=== PATIENT | female | born 1970 | race Caucasian/White ===

== ENCOUNTER 2016-05-07 14:10 | Emergency (ER) | payer OTHER ==
[~2016-05-07] VITALS: Ht 175.3 cm; Wt 83.0 kg
[~2016-05-07 14:10] MED LIST: CYCL-319 PO; HYDR-3498 PO; IBUP-1542 PO
[2016-05-07 14:53] VITALS: Ht 175.3 cm; Wt 83.0 kg
[2016-05-07] MEDS ORDERED: ACETAMINOPHEN 500 MG TAB PO STA (16:11)
[2016-05-07] MEDS ORDERED: IBUPROFEN 800 MG TAB PO ONE (16:30)
--- NOTE | 2016-05-07 16:39 | RADRPT ---
PROCEDURE: XR Right Forearm. CLINICAL INDICATION: Trauma. Right forearm pain. TECHNIQUE: AP and lateral views of the right forearm were obtained. COMPARISON: No prior studies are available for comparison. FINDINGS: There is no fracture or dislocation. The soft tissues are normal. Articular surfaces are intact. There is no lytic or blastic lesion. There is no radiopaque foreign body. IMPRESSION: 1. Unremarkable images of the right forearm. RPTAT: QQ .Bud De Oliveira MD, MD Date Time Electronically viewed and signed by .Bud De Oliveiar MD, on 05/07/2016 16:39 .R/
[2016-05-07] MEDS ORDERED: ACET325T33 PO (17:07)
[2016-05-07] MEDS ORDERED: NAPR-260 PO (17:07)
--- NOTE | 2016-05-07 17:31 | ERD ---
ER Documentation Chief Complaint Date/Time DATE: 05/07/16 TIME: 17:28 Chief Complaint R ARM PAIN HPI 46-year-old female who around 2 PM today bumped her right forearm on a wooden bar. Complains of pain in the right forearm. This occurred at work. No other complaints. ROS All systems reviewed and are negative except as per history of present illness. Medications Home Meds Active Scripts Acetaminophen* (Tylenol*) 325 Mg Tablet, 2 TAB PO Q6 Y for PAIN AND OR ELEVATED TEMP, #20 TAB Prov:KARSTEN DILLON DO 05/07/16 Naproxen* (Naprosyn*) 500 Mg Tablet, 500 MG PO BID Y for PAIN AND/OR INFLAMMATION, #15 TAB Prov:KARSTEN DILLON DO 05/07/16 Cyclobenzaprine Hcl* (Cyclobenzaprine Hcl*) 10 Mg Tablet, 10 MG PO TID, #20 TAB Prov:RAZA ARAMBULA MD 04/02/15 Hydrocodone Bit-Acetaminophen* ([place]*) 5-325 Mg Tab, 1 TAB PO Q6 Y for PAIN, # 15 TAB Prov:RAZA ARAMBULA MD 04/02/15 Ibuprofen* (Motrin*) 600 Mg Tab, 600 MG PO Q6, #20 TAB Prov:RAZA ARAMBULA MD 04/02/15 Allergies Allergies: Coded Allergies: No Known Allergy (Unverified , 04/02/15) PMhx/Soc Medical and Surgical Hx: pt denies Medical Hx, pt denies Surgical Hx Hx Alcohol Use: No Hx Substance Use: No Hx Tobacco Use: No Physical Exam Vitals Vital Signs Date Time Temp Pulse Resp B/P Pulse Ox O2 Delivery O2 Flow Rate FiO2 05/07/16 14:53 98.0 67 18 111/68 99 Physical Exam Const: NAD WDWN alert oriented 3 Head: Atraumatic Eyes: Normal Conjunctiva ENT: Normal External Ears, Nose and Mouth. Neck: Full range of motion..~ No meningismus. Resp: Clear to auscultation bilaterally Cardio: Regular rate and rhythm, no murmurs Abd: Soft, non tender, non distended. Normal bowel sounds Skin: No petechiae or rashes Back: No midline or flank tenderness Ext: No cyanosis,. Right distal forearm has localized area of moderate to severe tenderness to palpation mild pain with pronation supination minimal edema no erythema and is neurovascularly intact negative squeeze test Neur: Awake and alert Psych: Normal Mood and Affect Results 24 hrs Current Medications Medications (Trade) Dose Ordered Sig/Carlitos Route PRN Reason Start Time Stop Time Status Last Admin Dose Admin Ibuprofen (Motrin) 800 mg ONCE ONCE PO 05/07/16 16:30 05/07/16 16:31 DC 05/07/16 16:43 Acetaminophen (Tylenol Tab) 1,000 mg ONCE STAT PO 05/07/16 16:11 05/07/16 16:12 DC 05/07/16 16:43 [place] [id number] Radiology Main Line: [phone] DIAGNOSTIC IMAGING REPORT Patient: PETER RICCI : 1970 Age: 46 Sex: F MR #: [id number] DOS: 05/07/16 0000 Ordering MD: KARSTEN DILLON DO Location: [facility] Room/Bed: PROCEDURE: XR Right Forearm. CLINICAL INDICATION: Trauma. Right forearm pain. TECHNIQUE: AP and lateral views of the right forearm were obtained. COMPARISON: No prior studies are available for comparison. FINDINGS: There is no fracture or dislocation. The soft tissues are normal. Articular surfaces are intact. There is no lytic or blastic lesion. There is no radiopaque foreign body. IMPRESSION: 1. Unremarkable images of the right forearm. RPTAT: QQ .Raza De Oliveira MD, MD Date Time Electronically viewed and signed by .Raza De Oliveira MD, on 05/07/2016 16:39 .R/ CC: KARSTEN DILLON DO Procedures/MDM X-ray does not show dislocation or fracture. Likely this is a soft tissue injury and/or bone bruise. Motrin Tylenol here and will give her pain medication for home. Chris wrap was applied to the right forearm for comfort and support. Splint Assessment: Neurovascularly intact post splint placement with good fit. I doubt fracture or dislocation or abscess or cellulitis or compartment syndrome. Vital signs are stable and she is stable for discharge and outpatient follow-up. ED precautions discussed Departure Diagnosis: Primary Impression: Right forearm injury Encounter type: initial encounter Qualified Code: S59.911A - Right forearm injury, initial encounter Condition: Stable Patient Instructions: Contusion, Upper Extremity KARSTEN DILLON DO May 07, 2016 17:31
[2016-05-07 17:39] VITALS: BP 115/62; PULSE 65; RESP 16; TEMP 98
== END 2016-05-07 17:40 | disposition home or self-care (01) ==
LOC: FTE 14:10
DX: S59.911A Unspecified injury of right forearm, initial encounter (principal); W22.8XXA Striking against or struck by other objects, initial encounter; Y92.89 Other specified places as the place of occurrence of the external cause
CPT/HCPCS: 73090; Z7502; Z7610

== ENCOUNTER 2016-10-26 19:53 | Emergency (ER) | payer OTHER ==
[~2016-10-26] VITALS: Ht 167.6 cm; Wt 82.0 kg
[~2016-10-26 19:53] MED LIST changes: +ACET325T33 PO; +NAPR-260 PO
[2016-10-26 19:56] VITALS: Ht 167.6 cm; Wt 82.0 kg
--- NOTE | 2016-10-26 20:45 | ERA ---
ER Documentation Chief Complaint Date/Time DATE: 10/26/16 TIME: 20:42 Chief Complaint left foot pain/ numbness today, denies injury HPI This is a healthy 46-year-old female presenting with left foot swelling and pain. Patient denies trauma. There are no aggravating factors. Patient has taken relieve with adequate relief. Is in a monogamous relationship. Denies recent GI illness, fever, or past medical history. Patient has just begun going through menopause but is still having menstrual cycles. ROS All systems reviewed and are negative except as per history of present illness. Medications Home Meds Active Scripts Acetaminophen* (Tylenol*) 325 Mg Tablet, 2 TAB PO Q6 Y for PAIN AND OR ELEVATED TEMP, #20 TAB Prov:KARSTEN DILLON DO 05/07/16 Naproxen* (Naprosyn*) 500 Mg Tablet, 500 MG PO BID Y for PAIN AND/OR INFLAMMATION, #15 TAB Prov:KARSTEN DILLON DO 05/07/16 Cyclobenzaprine Hcl* (Cyclobenzaprine Hcl*) 10 Mg Tablet, 10 MG PO TID, #20 TAB Prov:RAZA ARAMBULA MD 04/02/15 Hydrocodone Bit-Acetaminophen* ([place]*) 5-325 Mg Tab, 1 TAB PO Q6 Y for PAIN, # 15 TAB Prov:RAZA ARAMBULA MD 04/02/15 Ibuprofen* (Motrin*) 600 Mg Tab, 600 MG PO Q6, #20 TAB Prov:RAZA ARAMBULA MD 04/02/15 Allergies Allergies: Coded Allergies: No Known Allergy (Unverified , 04/02/15) PMhx/Soc History of Surgery: Yes (THYROIDECTOMY) Hx Alcohol Use: Yes (SOCIAL) Hx Substance Use: No Hx Tobacco Use: No Smoking Status: Never smoker Physical Exam Vitals Vital Signs Date Time Temp Pulse Resp B/P Pulse Ox O2 Delivery O2 Flow Rate FiO2 10/26/16 19:56 98.2 88 20 126/88 97 Physical Exam Const: Well-appearing well-developed 46-year-old female Head: Atraumatic Eyes: Normal Conjunctiva. PERRLA, EOMI bilaterally. ENT: Normal External Ears, Nose and Mouth. Neck: Full range of motion..~ No meningismus. Resp: Clear to auscultation bilaterally Cardio: Regular rate and rhythm, no murmurs Abd: Soft, non tender, non distended. Normal bowel sounds. Posterior tibial and dorsalis pedis pulses 2+ bilaterally. Patellar reflexes 2+ bilaterally. Capillary refill less than 2 seconds. Skin: Mildly erythematous area over the dorsal aspect of the foot without streaking or warmth. Nontender to palpation. No petechiae or rashes Back: No midline or flank tenderness Ext: Left foot swelling and tenderness on the dorsal side over the second through fourth metacarpal bones. No calf swelling, no palpable cords, no edema. Neur: Awake and alert Psych: Normal Mood and Affect Results 24 hrs Laboratory Tests Test 10/26/16 20:52 Bedside Urine pH (LAB) 6.0 Bedside Urine Protein (LAB) 1+ Bedside Urine Glucose (UA) Negative Bedside Urine Ketones (LAB) Negative Bedside Urine Blood 3+ Bedside Urine Nitrite (LAB) Negative Bedside Urine Leukocyte Esterase (L Negative Procedures/MDM This is an otherwise healthy 46-year-old female presenting with a chief complaint of left foot swelling and pain as stated in the history and physical exam. Patient received a urine dip to rule out Tiki's syndrome. Patient's urine and urine dip are unremarkable. Refused pain medications. Patient received an x-ray to rule out any bony pathology the results were read by the radiologist and given the following impression: No acute fracture. At this time I am unable to rule out tendinous or ligamentous injury. I have little suspicion for compartment syndrome, fracture, venous thromboembolism or osteomyelitis. However at this time I am unable to rule out cellulitis. We will go ahead and prescribe the patient antibiotics for possible infection and pain medication for symptomatic relief. Have advised to follow-up with PCP in the next 1-3 days for further evaluation and possible referral to a specialist. Patient's vitals are stable and her current condition is appropriate for discharge. Patient will be discharged with discharge instructions and return precautions. Departure Diagnosis: Primary Impression: Foot pain Qualified Code: M79.672 - Left foot pain Additional Impression: Cellulitis Qualified Code: L03.116 - Cellulitis of left lower extremity Condition: Stable Additional Instructions: Follow up with your PCP within the next 1-3 days for a more thorough evaluation and a possible referral to a specialist. Return the the emergency department immediately if symptoms worsen or change. If you have any questions regarding medications, ask your pharmacist or us before you leave. If any adverse reactions occur while taking your medications, discontinue the treatment and return to the emergency department immediately. Take your medications as directed, and complete the entire course of treatment. JERRY GRAMAJO PA-C Oct 26, 2016 20:45
[2016-10-26 20:47] LABS: URINE BLOOD (Dip) POC 3+ (NEGATIVE)
--- NOTE | 2016-10-26 21:29 | RADRPT ---
PROCEDURE: X-ray left foot CLINICAL INDICATION: Pain and swelling at the dorsal aspect of the left forefoot, with reference wendy greenfield. TECHNIQUE: 3 views left foot COMPARISON: None FINDINGS: No acute fracture or dislocation. Plantar calcaneal enthesophyte. Mild soft tissue swelling over t he dorsum of the left foot. IMPRESSION: No acute fracture. RPTAT: [facility]U Physician Serina Date Time Electronically viewed and signed by Raysa Marks Physician on 10/26/2016 21:29 RS/
[2016-10-26] MEDS ORDERED: SULF1TAB31 PO (21:38)
[2016-10-26 21:46] VITALS: BP 122/78; PULSE 72; RESP 20; TEMP 98.3
== END 2016-10-26 21:48 | disposition home or self-care (01) ==
LOC: FTE 19:53
DX: M79.672 Pain in left foot (principal); L03.116 Cellulitis of left lower limb
CPT/HCPCS: 73630; 81003; Z7502

== ENCOUNTER 2016-11-05 19:17 | Emergency (ER) | payer OTHER ==
[~2016-11-05] VITALS: Ht 175.3 cm; Wt 82.5 kg
[~2016-11-05 19:17] MED LIST changes: +SULF1TAB31 PO
[2016-11-05 19:30] VITALS: Ht 175.3 cm; Wt 82.5 kg
--- NOTE | 2016-11-05 19:57 | ERD ---
ER Documentation Chief Complaint Date/Time DATE: 11/05/16 TIME: 19:53 Chief Complaint F/U WAS HERE LAST WEEK FOR FOOT CELLULITIS FINISHED ATB HPI 46-year-old female presented emergency department for left foot cellulitis. Was here last week diagnosed with cellulitis and was prescribed with Bactrim and Keflex. Stated that her cellulitis is not getting better. Denies headache, loss of consciousness, dizziness, blurry vision, changes in vision, photophobia, facial pain, ear pain, throat pain, difficulty swallowing, neck pain, shoulder pain, chest pain, cough, hemoptysis, abdominal pain, back pain, loss of appetite, nausea, vomiting, hematochezia, diarrhea, constipation, urinary symptoms, , the possibility of being , bladder and bowel incontinences, extremity weakness, extremity tenderness, numbness or tingling sensation, difficulty walking, recent travel, recent exposure to illness, recent antibiotic use in the last 3 months, fever, chills. Allergy: No known drug allergies. PMH: Graves' disease. Family medical history: Denies. A LMP: "Friday of last week." Medications: Levothyroxine. Keflex, Bactrim. Surgery: "Ablation of my thyroid," appendectomy. 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 Denies smoking, use of alcohol, use of illegal drugs. ROS All systems reviewed and are negative except as per history of present illness. Medications Home Meds Active Scripts Hydrocodone/Acetaminophen ([place] 5-325 Tablet) 1 Each Tablet, 1 TAB PO Q6H Y for PAIN, #7 TAB Prov:HENRY VELA F 11/05/16 Ibuprofen* (Ibuprofen*) 800 Mg Tablet, 800 MG PO Q8 Y for PAIN, #20 TAB Prov:BOBBYILAHENRY KENNEY F 11/05/16 Clindamycin Hcl* (Clindamycin Hcl*) 300 Mg Capsule, 300 MG PO TID for 10 Days, CAP Prov:PASILABANHENRY F 11/05/16 Sulfamethoxazole/Trimethoprim* (Bactrim Ds* Tablet) 1 Each Tablet, 1 TAB PO BID , #14 TAB Prov:JERRY GRAMAJO PA-C 10/26/16 Acetaminophen* (Tylenol*) 325 Mg Tablet, 2 TAB PO Q6 Y for PAIN AND OR ELEVATED TEMP, #20 TAB Prov:KARSTEN DILLON DO 05/07/16 Naproxen* (Naprosyn*) 500 Mg Tablet, 500 MG PO BID Y for PAIN AND/OR INFLAMMATION, #15 TAB Prov:KARSTEN DILLON DO 05/07/16 Cyclobenzaprine Hcl* (Cyclobenzaprine Hcl*) 10 Mg Tablet, 10 MG PO TID, #20 TAB Prov:RAZA ARAMBULA MD 04/02/15 Hydrocodone Bit-Acetaminophen* ([place]*) 5-325 Mg Tab, 1 TAB PO Q6 Y for PAIN, # 15 TAB Prov:RAZA ARAMBULA MD 04/02/15 Ibuprofen* (Motrin*) 600 Mg Tab, 600 MG PO Q6, #20 TAB Prov:RAZA ARAMBULA MD 04/02/15 Allergies Allergies: Coded Allergies: No Known Allergy (Unverified , 04/02/15) PMhx/Soc History of Surgery: Yes (THYROIDECTOMY) Hx Alcohol Use: Yes (SOCIAL) Hx Substance Use: No Hx Tobacco Use: No Smoking Status: Never smoker Physical Exam Vitals Vital Signs Date Time Temp Pulse Resp B/P Pulse Ox O2 Delivery O2 Flow Rate FiO2 11/05/16 19:30 99.0 89 20 115/77 97 Physical Exam CONSTITUTIONAL: Well-appearing; well-nourished; in no apparent distress. HEAD: Normocephalic; atraumatic. EYES: Conjunctiva clear, sclera non-icteric, EOM intact. PERRL Ears: Hearing intact. EACs clear, TMs non-bulging, non-inflamed, translucent & mobile, ossicles normal appearance, No obstructions, no erythema, no discharges Nose: No obstructions. No polyps. No external lesions. Mucosa non-inflamed. No external lesions, septum and turbinates normal. No rhinorrhea. No discharges. Frontal sinus is non-tender to palpation. Maxillary sinus is non-tender to palpation. MOUTH: Moist mucous membranes, no lesion, no obstructions, no vesicles, no thrush, patent airway Throat: Uvula in midline. Right tonsil is +1 with no erythema, no exudate. Left tonsil is +1 with no erythema, no exudate. Tolerating secretions well. Good gag reflex. Patent airway. Neck: Supple, without lesions, bruits, or adenopathy. No mass. Thyroid non- enlarged and non-tender to palpation. CHEST: Symmetrical chest. Respirations even and not labored. No retractions noted. CARDIOVASCULAR: Normal S1, S2. RRR. No murmurs, gallops. RESPIRATORY: Normal chest excursion with respiration; breath sounds clear and equal bilaterally; no wheezes, rhonchi, or rales. Breathing even and unlabored. Speaking in clear, full, and complete sentences w/ ease. ABDOMEN: Normal bowel sounds normal. Soft, round, non-distended, non-guarding, no tenderness, no rebound, no organomegaly, no masses, no pulsating abdominal mass. No hernia. No peritoneal signs. : No CVA tenderness. BACK: Symmetrical shoulder. Spine is midline without deformity, tenderness. No evidence of trauma or deformity. PELVIS: Stable pelvis. No evidence of trauma or deformity. MUSCULOSKELETAL: Normal gait and station. No misalignment, asymmetry, crepitation, defects, tenderness, masses, effusions, decreased range of motion, instability, atrophy or abnormal strength or tone in the head, neck, spine, ribs , pelvis or extremities except there is a swelling and tenderness to the dorsal aspect of the left foot over the second through fourth metacarpal bones. No induration. Pedal pulse is unremarkable to left foot. No calf tenderness. NEUROVASCULAR: Distal pulses are present. Pedal pulse are present, equal, and normal. Capillary refills are < 2 seconds. NEUROLOGIC: Alert and oriented x4. Speaks full and clear sentences. Cranial Nerves II-XII normal. Sensation to pain, touch, and proprioception normal. Grossly unremarkable. No neurologic deficits. Romberg test is negative. PSYCHOLOGICAL: The patients mood and manner are appropriate. No hallucinations , delusions. Not SI. Not HI. Has the capacity to decide for self SKIN: Normal for age and ethnicity; warm; dry; good turgor; no apparent lesions or exudates. No rashes, hives, discoloration. Intact. Result Diagram: 11/05/16199911/05/161999 Results 24 hrs Laboratory Tests Test 11/05/16 20:00 White Blood Count 8.510^3/ul Red Blood Count 4.2510^6/ul Hemoglobin 13.5g/dl Hematocrit 40.0% Mean Corpuscular Volume 94.1fl Mean Corpuscular Hemoglobin 31.8pg Mean Corpuscular Hemoglobin Concent 33.8g/dl Red Cell Distribution Width 11.4% Platelet Count 38692^3/UL Mean Platelet Volume 10.1fl Neutrophils % 42.3% Lymphocytes % 46.7% Monocytes % 6.1% Eosinophils % 3.8% Basophils % 0.9% Nucleated Red Blood Cells % 0.0/100WBC Neutrophils # 3.610^3/ul Lymphocytes # 4.010^3/ul Monocytes # 0.510^3/ul Eosinophils # 0.310^3/ul Basophils # 0.110^3/ul Nucleated Red Blood Cells # 0.010^3/ul Sodium Level 140mmol/L Potassium Level 4.0mmol/L Chloride Level 97mmol/L Carbon Dioxide Level 28mmol/L Anion Gap 19 Blood Urea Nitrogen 24mg/dl Creatinine 0.86mg/dl Glucose Level 81mg/dl Calcium Level 10.0mg/dl Total Bilirubin 0.1mg/dl Direct Bilirubin 0.00mg/dl Indirect Bilirubin 0.1mg/dl Aspartate Amino Transf (AST/SGOT) 29IU/L Alanine Aminotransferase (ALT/SGPT) 22IU/L Alkaline Phosphatase 52IU/L Total Protein 8.0g/dl Albumin 4.9g/dl Globulin 3.10g/dl Albumin/Globulin Ratio 1.58 Current Medications Medications (Trade) Dose Ordered Sig/Carlitos Route PRN Reason Start Time Stop Time Status Last Admin Dose Admin Clindamycin Phosphate 900 mg 900 mg ONCE ONCE IV 11/05/16 20:00 11/05/16 20:01 DC Clindamycin HCl/ Dextrose (Cleocin 900 Mg/ D5W (Pmx)) 50 ml @ 50 mls/hr ONCE IVPB 11/05/16 20:30 11/05/16 23:00 11/05/16 20:17 Procedures/MDM Examination: Please see physical examination. Disease process, medical treatment was explained to the patient and family member. They verbalized understanding and agreed with the diagnostic tests, medical treatment, and follow-up care. Radiology: X-ray of the left foot. Findings: There is no acute fracture or dislocation. The metatarsals are in alignment with the cuneiforms. The joint spaces are maintained. There is a plantar calcaneal heel spur. There is mild soft tissue swelling along the dorsal aspect of the forefoot. Impression: No acute bony abnormality or bony destructive changes to suggest osteomyelitis. Mild soft tissue swelling along the dorsal aspect of the forefoot. Blood works: Reviewed. Treatment: IV insertion. Normal saline 1 L bolus. Clindamycin 100 mg IV 1. Re-evaluation: Denies headache, dizziness, blurry vision, neck pain, shoulder pain, chest pain, back pain, abdominal pain, nausea, vomiting. No episode of emesis in the emergency department. Alert and oriented 4. Speaks full and clear sentences. Respirations even and unlabored. Lung sounds clear to auscultation. Active bowel sounds. Alert and oriented 4. Speaks full and clear sentences. Respirations even and unlabored. Lung sounds clear to auscultation. Left pedal pulse is good and within normal limits. Right pedal pulse is good and within normal limits. No induration. No calf tenderness bilaterally. Ambulatory with steady gait. No neurovascular deficits. No neurological deficits. Consultation: None. Differential diagnosis: Sepsis versus necrotizing fasciitis versus osteomyelitis versus cellulitis Medical decision makin-year-old female presented emergency department for left foot cellulitis. Was here last week diagnosed with cellulitis and was prescribed with Bactrim and Keflex. Stated that her cellulitis is not getting better. Patient's complaint, patient's history about her complaint, my physical findings, my reevaluation are consistent my final diagnosis of cellulitis Medications prescribed are the following: Clindamycin. Motrin. [place]. Patient and family member are made aware of the side effects and adverse reactions of the medications prescribed. Instructed on when to seek emergent and medical attention in case allergic/anaphylactic reactions or severe side effects and or adverse reactions to medications. Patient and family member verbalized understanding. Patient instructed Instructed to follow-up with his PCP in 24-48 hours. Instructed to Call 911 for chest pain, shortness of breath. Advised to come back here in ED as soon as possible for severity of symptoms which includes but not limited to: any new symptoms; shortness of breath/difficulty of breathing; cardiovascular changes; severe gastrointestinal symptoms; signs and symptoms of bleeding and or infection; signs of compartment syndrome/neurovascular changes; neurological changes/deficits. Patient and family member verbalized understanding. Upon discharge, patient is alert and oriented x 4, speaks full and clear sentences, denies pain, has no neurological deficits, has no neurovascular deficits, difficulty of breathing. Breathing even and unlabored. Lung sounds are clear to auscultation. Not in distress. Appears comfortable. Ambulatory with steady gait. Appears satisfied with care provided here in ED. Departure Diagnosis: Primary Impression: Cellulitis Condition: Good Additional Instructions: Instructed to follow-up with his PCP in 24-48 hours. Instructed to Call 911 for chest pain, shortness of breath. Advised to come back here in ED as soon as possible for severity of symptoms which includes but not limited to: any new symptoms; shortness of breath/difficulty of breathing; cardiovascular changes; severe gastrointestinal symptoms; signs and symptoms of bleeding and or infection; signs of compartment syndrome/neurovascular changes; neurological changes/deficits. Patient and family member verbalized understanding. HENRY VELA Nov 05, 2016 19:56
[2016-11-05] MEDS ORDERED: CLINDAMYCIN 900 MG INJ IV ONE (20:00)
[2016-11-05 20:18] LABS: ADD SCAN DIFF NO
[2016-11-05 20:19] LABS: BASOPHIL # 0.1 10^3/ul (0.0-0.1); BASOPHILS % 0.9 % (0.0-2.0); EOSINOPHILS # 0.3 10^3/ul (0.0-0.5); EOSINOPHILS % 3.8 % (0.0-7.0); HEMOGLOBIN 13.5 g/dl (12.0-16.0); LYMPHOCYTES % 46.7 % (15.0-51.0); MEAN CORPUSCULAR HEMOGLOBIN 31.8 pg (29.0-33.0); MEAN CORPUSCULAR HGB CONC 33.8 g/dl (32.0-37.0); MEAN CORPUSCULAR VOLUME 94.1 fl (82.0-101.0); MEAN PLATELET VOLUME 10.1 fl (7.4-10.4); MONOCYTE # 0.5 10^3/ul (0.3-0.9); MONOCYTES % 6.1 % (0.0-11.0); NEUTROPHIL # 3.6 10^3/ul (1.6-7.5); NEUTROPHILS % 42.3 % (39.0-77.0); PLATELET COUNT 248 10^3/UL (140-415); RED BLOOD COUNT 4.25 10^6/ul (4.20-5.40); RED CELL DISTRIBUTION WIDTH 11.4 % (11.5-14.5); WHITE BLOOD COUNT 8.5 10^3/ul (4.8-10.8)
--- NOTE | 2016-11-05 20:19 | RADRPT ---
PROCEDURE: XR Left foot. CLINICAL INDICATION: Cellulitis, evaluate for osteomyelitis TECHNIQUE: Three views of the left foot were obtained. COMPARISON: No prior studies are available for comparison. FINDINGS: There is no acute fracture or dislocation. The metatarsals are in alignment with the cuneiforms. Th e joint spaces are maintained. There is a plantar calcaneal heel spur. There is mild soft tissue s welling along the dorsal aspect of the forefoot. RPTAT: QQ IMPRESSION: 1. No acute bony abnormality or bony destructive changes to suggest osteomyelitis. 2. Mild soft tissue swelling along the dorsal aspect of the forefoot. .Mariana Limon MD, MD Date Time Electronically viewed and signed by .Mariana Limon MD, on 11/05/2016 20:19 .T/
[2016-11-05] MEDS ORDERED: CLINDAMYCIN 900 MG/D5W (PMX) 50 ML IVPB SCH (20:30)
[2016-11-05 20:38] LABS: ALBUMIN 4.9 g/dl (3.3-4.9); ALBUMIN/GLOBULIN RATIO 1.58; BILIRUBIN,INDIRECT 0.1 mg/dl (0-1.1); BILIRUBIN,TOTAL 0.1 mg/dl (0.2-1.3); CREATININE 0.86 mg/dl (0.44-1.00)
[2016-11-05] MEDS ORDERED: CLIN-73 PO (20:56)
[2016-11-05] MEDS ORDERED: HYDR-906 PO (20:57)
[2016-11-05] MEDS ORDERED: IBUP800T25 PO (20:57)
== END 2016-11-05 21:10 | disposition home or self-care (01) ==
LOC: FTE 19:17
DX: L03.116 Cellulitis of left lower limb (principal)
CPT/HCPCS: 73630; 80053; 85025; S0077; Z7610; 96374

== ENCOUNTER 2016-11-20 18:07 | Emergency (ER) | payer OTHER ==
[~2016-11-20] VITALS: Ht 175.3 cm; Wt 82.0 kg
[~2016-11-20 18:07] MED LIST changes: +CLIN-73 PO; +HYDR-906 PO; +IBUP800T25 PO
[2016-11-20 18:10] VITALS: Ht 175.3 cm; Wt 82.0 kg
--- NOTE | 2016-11-20 20:28 | ERD ---
ER Documentation Chief Complaint Date/Time DATE: 11/20/16 TIME: 20:23 Chief Complaint LT FOOT SWELLING /PAIN HPI 46-year-old female presents here in emergency department for complaint of left foot swelling for 3 weeks now, patient was seen several times here in emergency department, was also in the primary care doctor, has finished 2 courses of antibiotics for possible cellulitis. 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 Patient described the pain as sharp in 8/10 upon touching the area, patient denies any fever or chills. Patient took ibuprofen to help with his symptoms. She denies any direct trauma on affected area. Patient denies any numbness or tingling. ROS All systems reviewed and are negative except as per history of present illness. Medications Home Meds Active Scripts Hydrocodone/Acetaminophen ([place] 5-325 Tablet) 1 Each Tablet, 1 TAB PO Q6H Y for PAIN, #7 TAB Prov:HENRY VELA 11/05/16 Ibuprofen* (Ibuprofen*) 800 Mg Tablet, 800 MG PO Q8 Y for PAIN, #20 TAB Prov:HENRY VELA 11/05/16 Clindamycin Hcl* (Clindamycin Hcl*) 300 Mg Capsule, 300 MG PO TID for 10 Days, CAP Prov:HENRY VELA F 11/05/16 Sulfamethoxazole/Trimethoprim* (Bactrim Ds* Tablet) 1 Each Tablet, 1 TAB PO BID , #14 TAB Prov:JERRY GRAMAJO PA-C 10/26/16 Acetaminophen* (Tylenol*) 325 Mg Tablet, 2 TAB PO Q6 Y for PAIN AND OR ELEVATED TEMP, #20 TAB Prov:KARSTEN DILLON DO 05/07/16 Naproxen* (Naprosyn*) 500 Mg Tablet, 500 MG PO BID Y for PAIN AND/OR INFLAMMATION, #15 TAB Prov:KARSTEN DILLON DO 05/07/16 Cyclobenzaprine Hcl* (Cyclobenzaprine Hcl*) 10 Mg Tablet, 10 MG PO TID, #20 TAB Prov:RAZA ARAMBULA MD 04/02/15 Hydrocodone Bit-Acetaminophen* ([place]*) 5-325 Mg Tab, 1 TAB PO Q6 Y for PAIN, # 15 TAB Prov:RAZA ARAMBULA MD 04/02/15 Ibuprofen* (Motrin*) 600 Mg Tab, 600 MG PO Q6, #20 TAB Prov:RAZA ARAMBULA MD 04/02/15 Allergies Allergies: Coded Allergies: No Known Allergy (Unverified , 04/02/15) PMhx/Soc History of Surgery: Yes (THYROIDECTOMY) Hx Miscellaneous Medical Probl: Yes (hypothyroidism) Hx Alcohol Use: Yes (SOCIAL) Hx Substance Use: No Hx Tobacco Use: No FmHx Family History: No coronary disease, No diabetes, No other Physical Exam Vitals Vital Signs Date Time Temp Pulse Resp B/P Pulse Ox O2 Delivery O2 Flow Rate FiO2 11/20/16 18:10 98.1 89 18 144/68 98 Physical Exam GENERAL: The patient is well developed and appropriate for usual state of health, in no apparent distress. CHEST: Clear to auscultation bilaterally. There are no rales, wheezes or rhonchi. HEART: Regular rate and rhythm. No murmurs, clicks, rubs or gallops. No S3 or S4. ABDOMEN: Soft, nontender and nondistended. Good bowel sounds. No rebound or guarding. No gross peritonitis. No gross organomegaly or masses. No Agustin sign or McBurney point tenderness. BACK: No midline or flank tenderness. EXTREMITIES:mild swelling on the dorsal aspect of the left foot, mild redness noted. Able to do full range of motion without any restriction. Equal pulses bilaterally. Full Range of motion of other joints of the body. Grossly neurovascularly intact. NEURO: Alert and oriented. Cranial nerves 2-12 intact. Motor strength in all 4 extremities with 5/5 strength. Sensation grossly intact. Normal speech and gait. SKIN: There is no apparent rash or petechia. The skin is warm and dry. HEMATOLOGIC AND LYMPHATIC: There is no evidence of excessive bruising or lymphedema. No gross cervical, axillary, or inguinal lymphadenopathy. Results 24 hrs PROCEDURE: X-ray left foot CLINICAL INDICATION: Left lateral foot pain with reference marker directed towards the proximal diaphysis of the fifth metatarsal. TECHNIQUE: 4 views left foot COMPARISON: None FINDINGS: No acute fracture or dislocation. Likely remote oblique stress fracture at the distal diaphysis of the second metatarsal. Differential considerations include osseous neoplasm with periosteal reaction. In the absence of clinical history of stress fracture at this location and recommend contrast enhanced MRI examination of the left foot for further evaluation to exclude a neoplasm in the distal diaphysis of the second metatarsal. Plantar calcaneal enthesophyte. Soft tissue swelling over the dorsum of the left forefoot. Soft tissues are otherwise unremarkable. IMPRESSION: 1. Likely stress fracture at the distal diaphysis of the second metatarsal. 2. In the absence of clinical history supporting a stress fracture in this region these findings concerning for a neoplasm with periosteal reaction. 3. If there is concern for neoplasm recommend IV contrast enhanced MRI examination left foot for further evaluation. 4. Otherwise, no evident acute fracture. RPTAT: [facility] Physician Serina Date Time Electronically viewed and signed by Physician Serina on 11/20/2016 22:56 RS/ CC: RAZA ARAMBULA MD After receiving patients xray report, a _left posterior leg splint was applied on the patients left foot. After application of the splint, patient has intact sensation and circulation on distal area of the affected joint. Patient does not complain of numbness or tingling after application of the splint. Patient tolerated procedure well. Crutches was given to use afterwards. Procedures/MDM Medical Decision Making: Patient's pain is most likely consistent with a stress fracture on the metatarsal was seen in the x-ray. To ensure that there is no possible malignant disease, patient was recommended to do outpatient MRI with IV contrast with primary care doctor or orthopedic doctor for further evaluation. 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 There is no suspicion for neurovascular compromise. Patient has intact sensation and circulation of the affected extremity. There is low suspicion for septic arthritis. Patient does not have any fever. Radiology exams of the affected area does not show any dislocation. She was given a posterior short leg splint and a crutches to use at home to help with his. Disposition: Home. Patient is given prescription for, tramadol for severe pain, continue ibuprofen. Patient was advised to elevate the affected area and apply ice on affected area. Patient was advised that if symptoms are worse, numbness , tingling, high fever, unable to move joint, worsening symptoms, to return to emergency department immediately. Otherwise, patient is advised to follow up with the primary care doctor in 5-7 days for reevaluation of symptoms. Disclaimer: Inadvertent spelling and grammatical errors are likely due to EHR/ dictation software use and do not reflect on the overall quality of patient care. Also, please note that the electronic time recorded on this note does not necessarily reflect the actual time of the patient encounter. Departure Diagnosis: Primary Impression: Stress fracture of metatarsal bone due to multiple or repetitive stress Condition: Stable Patient Instructions: Stress Fracture Additional Instructions: Patient is given prescription for, tramadol for severe pain, continue ibuprofen. Patient was advised to elevate the affected area and apply ice on affected area. Patient was advised that if symptoms are worse, numbness, tingling, high fever, unable to move joint, worsening symptoms, to return to emergency department immediately. Otherwise, patient is advised to follow up with the primary care doctor in 5-7 days for reevaluation of symptoms. NIKHIL HARRIS NP Nov 20, 2016 20:28
--- NOTE | 2016-11-20 22:57 | RADRPT ---
PROCEDURE: X-ray left foot CLINICAL INDICATION: Left lateral foot pain with reference marker directed towards the proximal di aphysis of the fifth metatarsal. TECHNIQUE: 4 views left foot COMPARISON: None FINDINGS: No acute fracture or dislocation. Likely remote oblique stress fracture at the distal diaphysis of t he second metatarsal. Differential considerations include osseous neoplasm with periosteal reaction . In the absence of clinical history of stress fracture at this location and recommend contrast enh anced MRI examination of the left foot for further evaluation to exclude a neoplasm in the distal di aphysis of the second metatarsal. Plantar calcaneal enthesophyte. Soft tissue swelling over the dorsum of the left forefoot. Soft tissues are otherwise unremarkable. IMPRESSION: 1. Likely stress fracture at the distal diaphysis of the second metatarsal. 2. In the absence of clinical history supporting a stress fracture in this region these findings co ncerning for a neoplasm with periosteal reaction. 3. If there is concern for neoplasm recommend IV contrast enhanced MRI examination left foot for fu rther evaluation. 4. Otherwise, no evident acute fracture. RPTAT: [facility] Physician Serina Date Time Electronically viewed and signed by Physician Serina on 11/20/2016 22:56 RS/
[2016-11-20] MEDS ORDERED: TRAM50TA2 PO (23:34)
== END 2016-11-21 00:31 | disposition home or self-care (01) ==
LOC: FTE 18:07
DX: M84.375A Stress fracture, left foot, initial encounter for fracture (principal); E03.9 Hypothyroidism, unspecified

== ENCOUNTER 2017-09-07 12:53 | Emergency (ER) | END 2017-09-07 15:30 | disposition home or self-care (01) ==